=== PATIENT | male | born 1990 ===

== ENCOUNTER 2018-06-05 20:21 | Emergency (ER) | payer OTHER ==
[~2018-06-05] VITALS: Ht 170.2 cm; Wt 74.8 kg
[2018-06-06] MEDS ORDERED: IMODIUM A-D2 M2 PO (03:55)
[2018-06-06] MEDS ORDERED: LEVSIN/SL0.125 MG SL (03:55)
[2018-06-06] MEDS ORDERED: INTESTINEX680 M1 PO (03:55)
== END 2018-06-06 04:13 ==
LOC: ER 20:21
DX: B34.9 Viral infection, unspecified (principal); K52.89 Other specified noninfective gastroenteritis and colitis